=== PATIENT | female | born 1975 | race Caucasian/White ===

== ENCOUNTER 2016-04-25 10:29 | Outpatient (CLI) | payer BC ==
[~2016-04-25] VITALS: Ht 165.1 cm; Wt 71.8 kg
[~2016-04-25 10:29] MED LIST: HYDR-3812 PO; IBUP-1773 PO; PREG75CA PO
--- OUTSIDE RECORDS SUMMARY | 2016-04-25 10:31 | XMS REPORT | Continuity of Care Document ---
Author Author [facility] Organization [facility] Address Unknown Phone Unavailable Care Team Providers Care [employer] Name Role Phone TAHMINA MALIK MD PCP Insurance Providers Payer Name Policy Number Subscriber Name Relationship [facility] [id number] Lei Martinez 16 Self / Same As Patient [facility] [id number] Wilda Martinez L 01 Advance Directives Directive Response Recorded Date/Time Advance Directives No 10/23/15 9:55am Health Care Power of [place] Hand No 10/23/15 9:55am Organ Donor Yes 10/23/15 9:55am Resuscitation Status Full Code 10/23/15 9:55am Problems No problem information available. Medications Current Home Medications Medication Dose Units Route Directions Days/Qty Instructions Start Date Pregabalin 75 Mg 75 Mg Oral Three Times A Day 10/17/15 Ibuprofen 600 Mg 600 Mg Oral Give Every 6 Hr On Schedule 40 10/23/15 Hydrocodone/Acetaminophen 1 Each 1 Tab Oral Every 4HRS as needed for Pain 10 10/23/15 Social History Social History Problem Response Recorded Date/Time Recent Foreign Travel No 10/23/2015 9:55am Recent Infectious Disease Exposure No 10/23/2015 9:55am Hospitalization with Isolation Denies 10/23/2015 6:37pm Smoking Status Never a Smoker 10/23/2015 9:55am Hospitalization with Isolation Denies 10/23/2015 6:37pm Query Response Start Date Stop Date Smoking Status Never a Smoker Hospital Discharge Instructions Patient Instructions Physician Instructions New, Converted or Re-Newed RX: RX on Chart Additional Follow Up: Yes Activity: Activity as Tolerated Driving Instructions: No Driving for 24 Hours NO SMOKING: NO SMOKING Nothing Inside Vagina: No Douching, No [place], No Tampons Discharge Diet: No Restrictions Symptoms to Report to : Bleeding Excessive, Eyesight Changes, Fever Over 101 Degrees F, Vaginal Bleeding Increase, Vaginal Discharge Foul For Any Problems or Questions: Contact Your Physician Plan of Care Discharge Date 10/23/15 4:08pm Instructions/Education Provided ANESTHESIA INSTRUCTIONS POSTOP Nonresectoscopic Endometrial Ablation (DC) Prescriptions See Medication Section Functional Status No functional status results. Allergies, Adverse Reactions, Alerts No known allergies. Immunizations No immunization records. Vital Signs Acute Vital Signs Vital Response Date/Time Temperature (Fahrenheit) 97.9 degrees F (97.6 - 99.5) 10/23/2015 4:08pm Temperature (Calculated Celsius) 36.05375 degrees C (36.4 - 37.5) 10/23/2015 4:00pm Temperature Source Temporal 10/23/2015 4:08pm Pulse Rate (adult) 77 bpm (60 - 90) 10/23/2015 4:08pm Respiratory Rate 20 bpm (12 - 24) 10/23/2015 4:08pm O2 Sat by Pulse Oximetry 96 % (88 - 100) 10/23/2015 4:08pm Blood Pressure 110/69 mm Hg 10/23/2015 4:08pm Blood Pressure Mean 87 mm Hg 10/23/2015 9:55am Pain Numeric Pain Scale 2 10/23/2015 4:08pm Pain Intensity 2 10/23/2015 4:00pm Height (Feet) 5 feet 10/23/2015 9:55am Height (Inches) 5.00 inches 10/23/2015 9:55am Height (Calculated Centimeters) 165.433835 cm 10/23/2015 9:55am Weight (Pounds) 158 pounds 10/23/2015 9:55am Weight (Ounces) 3.0 oz 10/23/2015 9:55am Weight (Calculated Grams) 39762.64 gm 10/23/2015 9:55am Weight (Calculated Kilograms) 71.718448 kilograms 10/23/2015 9:55am Calculated BMI 26.3 10/23/2015 9:55am Capillary Refill Capillary Refill Less Than 3 Seconds 10/23/2015 9:55am Results Pending Laboratory Results Test Name Collection Date/Time Pending Microbiology Results Procedure Source Collection Date/Time Procedures Procedure Status Date Provider(s) Uterine ablation Completed 10/23/15 RADHA ROMERO DO Encounters Encounter Location Arrival/Admit Date Discharge/Depart Date Attending Provider Departed [facility] 10/23/15 9:55am 4:08pm RADHA ROMERO DO Departed Clinic [facility] 10/17/15 12:05pm 10/17/15 12: 25pm RADHA ROMERO DO
[2016-04-25 10:50] VITALS: BP 127/85
[2016-04-25] MEDS ORDERED: TRIAMCINOLONE ACET (KENALOG-40) 40 MG/ML 1 ML VIAL ONE (10:56)
[2016-04-25] MEDS ORDERED: BUPIVACAINE 0.25% 30 ML (SENSORCAINE) VIAL ONE (10:56)
[2016-04-25 11:16] VITALS: BP 130/92
--- NOTE | 2016-04-25 11:27 | Pain Medicine-Procedure ---
Procedure Pre-Op/Post-Op Diagnosis Diagnosis: disc disorder with radiculopathy, lumbar Indications for Operation low back pain Attending Surgeon Luc Procedure Date of Service: Apr 25, 2016 PROCEDURE: Caudal Epidural Steroid Injection with catheter under Flouroscopic Guidance PROCEDURE NOTE: After obtaining written informed consent patient was taken to the procedure room. Vital signs were monitored through out the procedure. A time out was performed. The patient was placed in the prone position on fluoroscopy table. The lower back above the caudal space was prepped with chloraprep and draped in the usual sterile fashion. The skin over the sacral hiatus was identified under fluoroscopic guidance and infiltrated with 1% lidocaine for local anesthesia via 25 gauge needle. An 17-gauge epimed needle was used to access the epidural space under fluoroscopic guidance and was then advanced into the epidural space under fluoroscopic guidance in the AP view. The epimed catheter was then advanced under flourospopic guidance to the L5-S1 interspace. There was no paresthesia with catheter placement. After negative aspiration 1 cc of the contrast dye was injected through the needle with good spread of the medication in the epidural space at the appropriate levels. Again, after negative aspiration, 80 mg of kenalog with 2 cc of 0.25% marcaine and 2 mL's of preservative free normal saline was injected. There was no evidence of CSF, paresthesia or heme during the procedure. The catheter and needle were withdrawn as a unit and the tip was noted to be intact upon removal. Skin was cleaned and a sterile dressing was applied. Following the procedure the patient's vital signs were stable. The patient was discharged home after a brief period of observation with no new neuologic deficits. Complications none MAYA VELIZ MD Apr 25, 2016 11:27 am
== END 2016-04-25 11:20 | disposition home or self-care (01) ==
LOC: CARD 10:29
PROVIDERS: ATTEND Pain Medicine Pain Medicine
DX: M51.16 Intervertebral disc disorders with radiculopathy, lumbar region (principal)
CPT/HCPCS: 62323